=== PATIENT | male | born 1965 | race African-American/Black ===

== ENCOUNTER → 2018-01-31 | Outpatient (CLI) | payer MEDICARE, MEDICAID ==
[2018-02-02 07:45] LABS: PROSTATE SPECIFIC ANTIGEN 0.5 ng/mL (0.0-4.0); PSA FREE 0.15 ng/mL
== END ==
LOC: OD 17:21
PROVIDERS: ATTEND Urology
DX: N40.1 Benign prostatic hyperplasia with lower urinary tract symptoms (principal)
CPT/HCPCS: 36415; 84154

== ENCOUNTER → 2018-03-15 | Outpatient (CLI) | payer MEDICARE, MEDICAID ==
--- NOTE | 2018-03-15 13:54 | RADIOLOGY REPORT (SQ) ---
EXAM DESCRIPTION: FOOT RIGHT 2 VIEWS COMPLETED DATE/TIME: 03/15/2018 1:43 pm REASON FOR STUDY: PAIN IN RIGHT FOOT (M79.671) R22.42 LOCALIZED SWELLING, MASS AND LUMP, LEFT LOWER LIMB M79.671 PAIN IN RIGHT FOOT COMPARISON: None. NUMBER OF VIEWS: Two views. TECHNIQUE: AP and lateral without weight bearing radiographic images acquired of the right foot. LIMITATIONS: None. FINDINGS: MINERALIZATION: Osteopenia. BONES: No acute fracture or dislocation. No worrisome bone lesions. No significant osteophytes. JOINTS: No erosions. No chapis-articular osteopenia. No chondrocalcinosis. SOFT TISSUES: No swelling. No calcifications. OTHER: No other significant finding. IMPRESSION: No acute findings. TECHNICAL DOCUMENTATION: JOB ID: [id number] [employer]- All Rights Reserved Reading location - IP/workstation name: [email or web address]
--- NOTE | 2018-03-15 14:02 | XCELERA REPORT ---
[address] [address] Lower Extremity Venous Evaluation Name: CHANG SAAVEDRA Age: 52 yrs Gender: Male : 1965 Patient Status: Outpatient Patient Location: Study Date: 03/15/2018 01:17 PM Procedure: Color flow and duplex imaging of the veins of the left lower extremity as well as the right Common Femoral vein. Reason For Study: LLE SWELLING Ordering Physician: WU TYSON Performed By: Stacia Willams Right Sided Venous Evaluation The right common femoral vein is fully compressible. Spontaneous and phasic flow is present in the right common femoral vein. Left Sided Venous Evaluation Normal vessel filling wall to wall, compression and augmentation as well as Colour flow down to the infrageniculate veins. Interpretation Summary No duplex evidence of DVT or obstruction in the left lower extremity nor in the right Common Femoral vein. : WU TYSON > Francesco Babin
== END ==
LOC: SP 12:25
PROVIDERS: ATTEND Internal Medicine
DX: R22.42 Localized swelling, mass and lump, left lower limb (principal); M79.671 Pain in right foot
CPT/HCPCS: 93971

== ENCOUNTER 2018-11-15 15:36 | Day surgery (SDC) | payer MEDICARE, MEDICAID ==
[~2018-11-15 15:36] MED LIST: DIPHENHYDRAMINE HCL 50 MG/ML VIAL ONE; EPINEPHRINE INJ 1 MG/10 ML DISP.SYRIN ONE; FENTANYL CITRATE INJ/PF 100 MCG/2 ML AMPUL ONE; FLUMAZENIL INJ 0.5 MG/5 ML VIAL ONE; GLUCAGON,HUMAN RECOMB 1 MG INJ ONE; NALOXONE HCL INJ/PF 0.4 MG/1 ML SDV ONE; ONDANSETRON HCL INJ/PF 4 MG/2 ML SDV ONE
[2018-11-15] MEDS: MIDAZOLAM 2 MG/2 ML INJ ONE ×2 (16:04→16:07)
--- NOTE | 2018-11-15 16:52 | Operative Report ---
Operative Report DATE OF SURGERY: 11/15/18 Operative Report: Pre-op diagnosis: History of colon polyp Post-op diagnosis: 1 Polyps in the transverse and descending colon 2. Internal hemorrhoids Surgery: Colonoscopy with polypectomy Medications: Versed 3mg, Fentanyl 100 Mcg IV push Tissue removed: Colon polyps Procedure: After informed consent obtained from patient, conscious sedation was achieved. A digital rectal examination was performed and this was unremarkable. The colonoscope was inserted into the rectum and advanced to the cecum. The appendiceal orifice and the terminal ileum were both identified. The mucosa was examined into details as the colonoscope was slowly pulled out of the patient. The endoscope was retroflexed in the rectum. Patient tolerated the procedure well. Findings Cecum: Normal Ascending colon: Normal Transverse colon: 8 mm sessile polyp with umbilication removed with a hot snare Descending colon: 3 mm polyp removed with the snare Sigmoid colon: Normal Rectum: Normal except for internal hemorrhoids Plan: Await pathology OPERATION: .
[2018-11-15 17:32] VITALS: BP 120/89
== END 2018-11-15 17:30 | disposition home or self-care (01) ==
LOC: END 15:36
PROVIDERS: ATTEND Internal Medicine Gastroenterology
DX: Z12.11 Encounter for screening for malignant neoplasm of colon (principal); Z86.010 Personal history of colon polyps; K64.8 Other hemorrhoids; D12.4 Benign neoplasm of descending colon; D12.3 Benign neoplasm of transverse colon; I10 Essential (primary) hypertension; K58.9 Irritable bowel syndrome, unspecified; G40.909 Epilepsy, unspecified, not intractable, without status epilepticus
CPT/HCPCS: 45385; 88305 ×2; J2250; J3010; J0171; J1200; J1610; J2310; J2405; J3490

== ENCOUNTER → 2018-11-23 | Outpatient (CLI) | payer MEDICARE, MEDICAID ==
--- NOTE | 2018-11-23 12:56 | RADIOLOGY REPORT (SQ) ---
EXAM DESCRIPTION: U/S RETROPERITON (RENAL/AORTA) COMPLETED DATE/TIME: 11/23/2018 11:01 am REASON FOR STUDY: CKD STAGE 3 N18.3 CHRONIC KIDNEY DISEASE, STAGE 3 (MODERATE) COMPARISON: 01/02/2015 TECHNIQUE: Dynamic and static grayscale images acquired of the kidneys and bladder and recorded on P ACS. Additional selected color Doppler and spectral images recorded. LIMITATIONS: None. FINDINGS: RIGHT KIDNEY: Normal size, 8.7 cm. Normal echogenicity. No solid or suspicious masses. No hydronephrosis. No calcifications. LEFT KIDNEY: Normal size, 10.8 cm. Normal echogenicity. No solid or suspicious masses. There is an 8.8 cm cyst. No hydronephrosis. No calcifications. BLADDER: No bladder masses. OTHER FINDINGS: Prostate gland is enlarged and measures 4.8 x 5.8 x 4.2 cm. The gland is heterogeneo us. IMPRESSION: Large left renal cyst. The kidneys are otherwise unremarkable. Prostate gland is enlar ged and heterogeneous. Is there any clinical evidence of neoplasm? TECHNICAL DOCUMENTATION: JOB ID: [id number] [employer]- All Rights Reserved Reading location - IP/workstation name: [email or web address]
== END ==
LOC: RAD 10:28
PROVIDERS: ATTEND Internal Medicine
DX: N18.3 Chronic kidney disease, stage 3 (moderate) (principal); N28.1 Cyst of kidney, acquired
CPT/HCPCS: 76770

== ENCOUNTER → 2019-07-03 | Outpatient (CLI) | payer MEDICARE, MEDICAID ==
--- NOTE | 2019-07-03 16:50 | RADIOLOGY REPORT (SQ) ---
EXAM DESCRIPTION: U/S RETROPERITON (RENAL/AORTA) COMPLETED DATE/TIME: 07/03/2019 4:36 pm REASON FOR STUDY: N18.3 CHRONIC KIDNEY DISEASE, STAGE 3 (MODERATE) N18.3 CHRONIC KIDNEY DISEASE, ST AGE 3 (MODERATE) COMPARISON: 11/23/2018 TECHNIQUE: Dynamic and static grayscale images acquired of the kidneys and bladder and recorded on P ACS. Additional selected color Doppler and spectral images recorded. LIMITATIONS: None. FINDINGS: RIGHT KIDNEY: Normal size. Normal echogenicity. The solid or suspicious lesions. The re is a small 1.5 cm cyst. No hydronephrosis. No calcifications. LEFT KIDNEY: The left kidney is measured 12.5 cm in length. Normal echogenicity. No solid or lety picious lesions. There is a 9.3 x 8.8 x 7.7 cm cyst. No hydronephrosis. No calcifications. BLADDER: No masses. OTHER FINDINGS: Prostate is enlarged and indents the base of the bladder. IMPRESSION: 1. Large left renal cysts grossly unchanged. 2. Enlarged prostate which indents the base of bladder. TECHNICAL DOCUMENTATION: JOB ID: [id number]- All Rights Reserved Reading location - IP/workstation name: [email or web address]
== END ==
LOC: RAD 15:07
PROVIDERS: ATTEND Internal Medicine Nephrology
DX: I12.9 Hypertensive chronic kidney disease with stage 1 through stage 4 chronic kidney disease, or unspecified chronic kidney disease (principal); N18.3 Chronic kidney disease, stage 3 (moderate)
CPT/HCPCS: 76770

== ENCOUNTER → 2019-08-09 | Outpatient (CLI) | payer MEDICAID, MEDICARE ==
[2019-08-09 10:46] LABS: ABSOLUTE EOSINOPHILS # (AUTO) 0.2 10^3/uL (0.0-0.6); ABSOLUTE LYMPHOCYTES (AUTO) 1.2 10^3/uL (0.5-4.7); ABSOLUTE MONOCYTES (AUTO) 0.4 10^3/uL (0.1-1.4); ABSOLUTE NEUT (AUTO) 1.8 10^3/uL (1.7-8.2); BASOPHILS % (AUTO) 0.9 % (0-2); EOSINOPHILS % (AUTO) 5.2 % (0-6); HEMATOCRIT 43.4 % (37.9-51.0); HEMOGLOBIN 14.2 g/dL (13.5-17.0); LYMPHOCYTES % (AUTO) 33.6 % (13-45); MEAN CORPUSCULAR HGB CONC 32.7 g/dL (32.0-36.0); MEAN CORPUSCULAR VOLUME 89 fl (80-97); MONOCYTES % (AUTO) 10.5 % (3-13); PLATELET COUNT 167 10^3/uL (150-450); RED BLOOD COUNT 4.89 10^6/uL (4.35-5.55); RED CELL DISTRIBUTION WIDTH 15.2 % (11.5-14.0); SEGMENTED NEUTROPHILS % (AUTO) 49.8 % (42-78); TOTAL CELLS COUNTED % (AUTO) 100 %; WHITE BLOOD COUNT 3.6 10^3/uL (4.0-10.5)
[2019-08-09 11:16] LABS: ALBUMIN 4.4 g/dL (3.5-5.0); ALKALINE PHOSPHATASE 88 U/L (38-126); ANION GAP 9 (5-19); ASPARTATE AMINO TRANSFERASE 36 U/L (17-59); BILIRUBIN,DIRECT 0.2 mg/dL (0.0-0.4); BILIRUBIN,TOTAL 0.5 mg/dL (0.2-1.3); BLOOD UREA NITROGEN 21 mg/dL (7-20); CALCIUM 9.8 mg/dL (8.4-10.2); CARBON DIOXIDE 23 mmol/L (22-30); CHLORIDE 108 mmol/L (98-107); GLUCOSE 89 mg/dL (75-110); POTASSIUM 4.5 mmol/L (3.6-5.0); TOTAL PROTEIN 7.9 g/dL (6.3-8.2)
[2019-08-09 11:25] LABS: APPEARANCE,URINE SLIGHTLY-CLOUDY; BILIRUBIN,URINE NEGATIVE (NEGATIVE); COLOR,URINE YELLOW; GLUCOSE, URINE NEGATIVE (NEGATIVE); KETONES,URINE NEGATIVE (NEGATIVE); LEUKOCYTE ESTERASE,URINE LARGE (NEGATIVE); NITRITE,URINE NEGATIVE (NEGATIVE); PROTEIN,URINE NEGATIVE (NEGATIVE); URINE SPECIFIC GRAVITY 1.016; UROBILINOGEN,URINE NEGATIVE mg/dL (<2.0)
== END ==
LOC: OD 10:22
PROVIDERS: ATTEND Internal Medicine Nephrology
DX: I12.9 Hypertensive chronic kidney disease with stage 1 through stage 4 chronic kidney disease, or unspecified chronic kidney disease (principal); N18.3 Chronic kidney disease, stage 3 (moderate); N40.1 Benign prostatic hyperplasia with lower urinary tract symptoms
CPT/HCPCS: 36415; 80053; 81001; 83735; 83970; 84100; 85025

== ENCOUNTER 2020-08-02 18:14 | Inpatient (IN) | payer MEDICARE, MEDICAID ==
[2020-08-02 20:50] LABS: ABSOLUTE BASOPHILS # (AUTO) 0.1 10^3/uL (0.0-0.2); ABSOLUTE EOSINOPHILS # (AUTO) 0.2 10^3/uL (0.0-0.6); ABSOLUTE LYMPHOCYTES (AUTO) 1.9 10^3/uL (0.5-4.7); ABSOLUTE MONOCYTES (AUTO) 0.6 10^3/uL (0.1-1.4); ABSOLUTE NEUT (AUTO) 2.6 10^3/uL (1.7-8.2); EOSINOPHILS % (AUTO) 3.9 % (0-6); HEMATOCRIT 42.3 % (37.9-51.0); HEMOGLOBIN 13.8 g/dL (13.5-17.0); LYMPHOCYTES % (AUTO) 35.2 % (13-45); MEAN CORPUSCULAR HEMOGLOBIN 29.2 pg (27.0-33.4); MEAN CORPUSCULAR HGB CONC 32.7 g/dL (32.0-36.0); MEAN CORPUSCULAR VOLUME 89 fl (80-97); MONOCYTES % (AUTO) 10.4 % (3-13); RED BLOOD COUNT 4.74 10^6/uL (4.35-5.55); RED CELL DISTRIBUTION WIDTH 14.8 % (11.5-14.0); SEGMENTED NEUTROPHILS % (AUTO) 49.5 % (42-78); TOTAL CELLS COUNTED % (AUTO) 100 %; WHITE BLOOD COUNT 5.3 10^3/uL (4.0-10.5)
[2020-08-02 20:57] LABS: PROTHROMBIN TIME 15.4 SEC (11.4-15.4)
[2020-08-02 20:58] LABS: PARTIAL THROMBOPLASTIN TIME 30.3 SEC (23.5-35.8)
[2020-08-02] MEDS ORDERED: MONTELUKAST SODIUM 10 MG TABLET PO SCH (21:00)
[2020-08-02] MEDS ORDERED: LACOSAMIDE 150 MG PO SCH (21:00)
[2020-08-02] MEDS ORDERED: (PENDING PHARMACY ID) (Losartan Potassium [Losartan Potassium] 100 MG) PO SCH (21:00)
[2020-08-02] MEDS ORDERED: (PENDING PHARMACY ID) (Azelastine Hcl [Azelastine Hcl] 2 SPRAY) NASL SCH (21:00)
[2020-08-02] MEDS ORDERED: PRIMIDONE 250 MG TABLET PO SCH (21:00)
[2020-08-02] MEDS ORDERED: ERGOCALCIFEROL (VITAMIN D2) 50000 UNIT (1.25 MG) CAPSULE PO SCH (21:00)
--- NOTE | 2020-08-02 21:02 | PDOC H&P ---
History of Present Illness Admission Date/PCP: 08/02/20 18:14 WU TYSON MD History of Present Illness: CHANG SAAVEDRA is a 54 year old male, Patient is mentally challenged history of seizure, hypertension, BPH, he came to the office today with his sister for evaluation of swelling of the right lower extremity, deep vein thrombosis was suspected, a stat venous Doppler was obtained, demonstrated extensive DVT from the ankle to the popliteal fossa. He also complain of chest pain and shortness of breath suspicious for PE but CT angiogram could not be obtained because of CKD stage III. Past Medical History Cardiac Medical History: Reports: Hypertension Neurological Medical History: Reports: Seizures - SEIZURE PADS APPLIED Hematology: Reports: Sickle Cell Disease Social History Smoking Status: Never Smoker Electronic Cigarette use?: No Frequency of Alcohol Use: None Hx Recreational Drug Use: No Hx Prescription Drug Abuse: No Family History Family History: Reviewed & Not Pertinent Parental Family History Reviewed: Yes Children Family History Reviewed: Yes Sibling(s) Family History Reviewed.: Yes Medication/Allergy Home Medications: Carbamazepine [Tegretol Xr 200 mg Tab.sr] 600 mg PO BID 01/01/15 Montelukast Sodium 10 mg PO QPM 01/01/15 Primidone 100 mg PO BID 01/01/15 Topiramate 100 mg PO BID 01/01/15 Finasteride 5 mg PO QAM 01/29/15 Gabapentin 100 mg PO DAILY 11/15/18 Lacosamide [Vimpat] 150 mg PO BID 11/15/18 Losartan Potassium 100 mg PO DAILY 11/15/18 Tamsulosin HCl [Flomax] 0.4 mg PO BID 11/15/18 Azelastine HCl 2 spray NASL BID 08/02/20 Calcitriol [Rocaltrol 0.25 Mcg Capsule] 1 cap PO DAILY 08/02/20 Ergocalciferol (Vitamin D2) [Drisdol 50,000 Unit (1.25MG) Capsule] 50,000 unit PO Q7D 08/02/20 Loratadine [Claritin] 10 mg PO DAILY 08/02/20 Perampanel [Fycompa] 6 mg PO QHS 08/02/20 Allergies/Adverse Reactions: grass pollen-sweet vernal, standardized [Grass Poll-Sweet Vernal Grass] Allergy (Intermediate, Verified 11/15/18 15:39) eyes runny, sneezing Review of Systems Constitutional: ABSENT: chills, fever(s), headache(s), weight gain, weight loss Eyes: ABSENT: visual disturbances Ears: ABSENT: hearing changes Cardiovascular: PRESENT: chest pain, dyspnea on exertion, edema Respiratory: ABSENT: cough, hemoptysis Gastrointestinal: ABSENT: abdominal pain, constipation, diarrhea, hematemesis, hematochezia, nausea, vomiting Genitourinary: ABSENT: dysuria, hematuria Musculoskeletal: PRESENT: joint swelling Integumentary: ABSENT: rash, wounds Neurological: ABSENT: abnormal gait, abnormal speech, confusion, dizziness, focal weakness, syncope Psychiatric: ABSENT: anxiety, depression, homidical ideation, suicidal ideation Endocrine: ABSENT: cold intolerance, heat intolerance, menstrual abnormalities, polydipsia, polyuria Hematologic/Lymphatic: ABSENT: easy bleeding, easy bruising, lymphadenopathy Physical Exam Vital Signs: Temp Pulse Resp BP Pulse Ox 98.5 F 81 16 135/86 H 100 08/02/20 19:50 08/02/20 19:50 08/02/20 19:50 08/02/20 19:50 08/02/20 19:50 General appearance: PRESENT: no acute distress, well-developed, well-nourished Head exam: PRESENT: atraumatic, normocephalic Eye exam: PRESENT: conjunctiva pink, EOMI, PERRLA. ABSENT: scleral icterus Ear exam: PRESENT: normal external ear exam Mouth exam: PRESENT: moist, tongue midline Neck exam: PRESENT: full ROM. ABSENT: carotid bruit, JVD, lymphadenopathy, thyromegaly Respiratory exam: PRESENT: clear to auscultation [place] Cardiovascular exam: PRESENT: RRR, +S1, +S2. ABSENT: diastolic murmur, rubs, systolic murmur Pulses: PRESENT: normal dorsalis pedis pul, +2 pedal pulses bilateral Vascular exam: PRESENT: normal capillary refill GI/Abdominal exam: PRESENT: normal bowel sounds, soft. ABSENT: distended, guarding, mass, organolmegaly, rebound, tenderness Rectal exam: PRESENT: deferred Extremities exam: PRESENT: pedal edema Neurological exam: PRESENT: alert, awake, oriented to person, oriented to place, oriented to time, oriented to situation, CN II-XII grossly intact Psychiatric exam: PRESENT: appropriate affect, normal mood Skin exam: PRESENT: dry, intact, warm. ABSENT: cyanosis, rash Assessment & Plan - Diagnosis (1) Acute deep vein thrombosis of right popliteal vein Is this a current diagnosis for this admission?: Yes Plan: He has acute deep vein thrombosis of the right popliteal vein, unprovoked proximal thrombosis, I felt the patient needed to be admitted to the hospital for IV heparin because he has underlining chronic kidney disease which makes Lovenox unacceptable and also the new anticoagulant therapy especially the loading dose for acute DVT to be unacceptable as well, patient will be admitted to the hospital, he will be treated with IV heparin for 7 days which will correlate with his 7 days duration for the loading dose of Eliquis. Because the thrombosis is unprovoked treatment will be lifelong. (2) Chest pain Qualifiers: Chest pain type: unspecified Qualified Code(s): R07.9 - Chest pain, unspecified Is this a current diagnosis for this admission?: Yes Plan: This could be a manifestation pulmonary embolism, it is not necessary to confirm PE because it will not exchange mechanic strategy, this patient need a lifelong anticoagulation (3) Chronic kidney disease, stage 3 Is this a current diagnosis for this admission?: Yes Plan: He has a history of CKD stage III - Time Time Spent: Greater than 70 Minutes Anticipated Discharge Disposition: Home, Self Care Anticipated Discharge Timeframe: 7 days - Inpatient Certification Based on my medical assessment, after consideration of the patient's comorbidities, presenting symptoms, or acuity I expect that the services needed warrant INPATIENT care.: Yes I certify that my determination is in accordance with my understanding of Medicare's requirements for reasonable and necessary INPATIENT services [42 CFR 412.3e].: Yes Medical Necessity: Need For Continuous Telemetry Monitoring - Plan Summary Plan Summary: Patient is admitted to the hospital to be treated with intravenous heparin, he has unprovoked proximal deep vein thrombosis of the right lower extremity, he will need lifelong anticoagulant, he probably have a PE because he has severe chest pain shortness of breath but it is not necessary to subject this patient to have CT angiogram of the chest especially with a background of chronic kidney disease stage III, the contrast will worsen the kidney disease especially more so that the management strategy would not be changed.
[2020-08-02 21:04] LABS: ALBUMIN 4.2 g/dL (3.5-5.0); ALKALINE PHOSPHATASE 119 U/L (38-126); AMYLASE 253 U/L (30-110); ANION GAP 8 (5-19); ASPARTATE AMINO TRANSFERASE 30 U/L (17-59); BILIRUBIN,DIRECT 0.3 mg/dL (0.0-0.4); BILIRUBIN,TOTAL 0.3 mg/dL (0.2-1.3); BLOOD UREA NITROGEN 21 mg/dL (7-20); CALCIUM 9.4 mg/dL (8.4-10.2); CARBON DIOXIDE 22 mmol/L (22-30); CHLORIDE 113 mmol/L (98-107); GLUCOSE 86 mg/dL (75-110); POTASSIUM 4.4 mmol/L (3.6-5.0); TOTAL PROTEIN 7.9 g/dL (6.3-8.2)
[2020-08-02 21:16] LABS: CREATINE KINASE MB 0.22 ng/mL (<4.55)
[2020-08-02 21:17] LABS: TROPONIN I < 0.012 ng/mL
[2020-08-02 21:18] LABS: PLATELET COUNT 157 10^3/uL (150-450)
--- NOTE | 2020-08-02 21:23 | RADIOLOGY REPORT (SQ) ---
EXAM DESCRIPTION: XR CHEST 2 VIEWS COMPLETED DATE/TME: 08/02/2020 19:48 CLINICAL HISTORY: 54 years, Male, DVT SUSPECT PE COMPARISON: Chest x-ray 01/25/2015 TECHNIQUE: PA and lateral views. FINDINGS: Cardiomediastinal silhouette is not enlarged. No suspicious acute lung pleural bone abnormalities. IMPRESSION: No obvious acute findings in the chest. Mildly dilated loops of bowel in the upper abdomen.
[2020-08-02 21:35] LABS: FREE T4 (FREE THYROXINE) 0.63 ng/dL (0.78-2.19); THYROID STIMULATING HORMONE 1.19 uIU/mL (0.47-4.68)
[2020-08-02] MEDS: LORATADINE 10 MG TABLET PO SCH (21:54)
[2020-08-02] MEDS: TAMSULOSIN HCL 0.4 MG CAP.SR.24H PO SCH (21:54)
[2020-08-02] MEDS: PRIMIDONE 50 MG TABLET PO SCH (21:54)
[2020-08-02] MEDS: LACOSAMIDE 100 MG TABLET PO SCH (21:54)
[2020-08-02] MEDS: CALCITRIOL 0.25 MCG CAPSULE PO SCH (21:54)
[2020-08-02] MEDS: GABAPENTIN 100 MG CAPSULE PO SCH (21:54)
[2020-08-02] MEDS: CARBAMAZEPINE 200 MG TAB.SR.12H PO SCH (21:54)
[2020-08-02] MEDS ORDERED: PERAMPANEL 6 MG PO SCH (22:00)
[2020-08-02] MEDS: TOPIRAMATE 100 MG TABLET PO SCH (22:03)
[2020-08-03] MEDS: HEPARIN SOD (PORCINE) 1,000 UNIT/ML 10 ML VIAL IV PRN (01:40)
[2020-08-03] MEDS: HEPARIN SODIUM,PORCINE/D5W 25,000 UNIT/250 ML RTUINJ IV PRN (01:43)
[2020-08-03 03:02] LABS: CREATINE KINASE MB < 0.22 ng/mL (<4.55); TROPONIN I < 0.012 ng/mL
[2020-08-03 09:17] LABS: CHOLESTEROL 207.05 mg/dL (0-200); PHOSPHORUS 2.7 mg/dL (2.5-4.5); TRIGLYCERIDES 39 mg/dL (<150)
[2020-08-03 09:29] LABS: DIRECT LDL 86 mg/dL (<100)
[2020-08-03 09:31] LABS: CREATINE KINASE MB 0.28 ng/mL (<4.55)
[2020-08-03 09:32] LABS: TROPONIN I < 0.012 ng/mL
[2020-08-03] MEDS ORDERED: LOSARTAN POTASSIUM 50 MG TABLET PO SCH (10:00)
[2020-08-03] MEDS: CARBAMAZEPINE 200 MG TAB.SR.12H PO SCH (10:56)
[2020-08-03] MEDS: FINASTERIDE 5 MG TABLET PO SCH (10:57)
[2020-08-03] MEDS: LORATADINE 10 MG TABLET PO SCH (10:57)
[2020-08-03] MEDS: LACOSAMIDE 100 MG TABLET PO SCH (10:57)
[2020-08-03] MEDS: TAMSULOSIN HCL 0.4 MG CAP.SR.24H PO SCH (10:57)
[2020-08-03] MEDS: CALCITRIOL 0.25 MCG CAPSULE PO SCH (10:57)
[2020-08-03] MEDS: TOPIRAMATE 100 MG TABLET PO SCH (10:58)
[2020-08-03] MEDS: PRIMIDONE 50 MG TABLET PO SCH (10:58)
[2020-08-03] MEDS: GABAPENTIN 100 MG CAPSULE PO SCH (10:58)
--- NOTE | 2020-08-03 14:10 | PDOC PROGRESS REPORT ---
Subjective Progress Note for:: 08/03/20 Subjective:: Patient seen by the bedside, he complains of pain in the right leg, the right leg is not as firm as it was yesterday Reason For Visit: EXTENSIVE DVT OF THE RIGHT LEG, CHEST PAIN ? PE Physical Exam Vital Signs: Temp Pulse Resp BP Pulse Ox 97.8 F 83 16 133/86 H 97 08/03/20 11:15 08/03/20 11:15 08/03/20 11:15 08/03/20 11:15 08/03/20 11:15 Intake & Output 08/02/20 08/03/20 08/04/20 06:59 06:59 06:59 Intake Total 400 614 Balance 400 614 Weight 87.3 kg General appearance: PRESENT: no acute distress Eye exam: PRESENT: PERRLA Respiratory exam: PRESENT: clear to auscultation [place] Cardiovascular exam: PRESENT: +S1, +S2 GI/Abdominal exam: PRESENT: soft Neurological exam: PRESENT: alert, CN II-XII grossly intact Results Laboratory Results: 08/02/20 20:30 08/02/20 20:30 08/02/20 08/02/20 08/02/20 20:30 20:30 20:30 WBC RBC Hgb Hct MCV MCH MCHC RDW Plt Count Seg Neutrophils % Sodium 143.1 Potassium 4.4 Chloride 113 H Carbon Dioxide 22 Anion Gap 8 BUN 21 H Creatinine 1.46 H Est GFR ( Amer) > 60 Glucose 86 Calcium 9.4 Phosphorus Magnesium 2.4 H Total Bilirubin 0.3 AST 30 Alkaline Phosphatase 119 Ammonia 23.8 Total Protein 7.9 Albumin 4.2 Triglycerides Cholesterol LDL Cholesterol Direct VLDL Cholesterol HDL Cholesterol Amylase 253 H Lipase 400.5 H TSH 1.19 Free T4 0.63 L 08/02/20 08/03/20 20:30 08:22 WBC 5.3 RBC 4.74 Hgb 13.8 Hct 42.3 MCV 89 MCH 29.2 MCHC 32.7 RDW 14.8 H Plt Count 157 Seg Neutrophils % 49.5 Sodium Potassium Chloride Carbon Dioxide Anion Gap BUN Creatinine Est GFR ( Amer) Glucose Calcium Phosphorus 2.7 Magnesium Total Bilirubin AST Alkaline Phosphatase Ammonia Total Protein Albumin Triglycerides 39 Cholesterol 207.05 H LDL Cholesterol Direct 86 VLDL Cholesterol 8.0 L HDL Cholesterol 84 Amylase Lipase TSH Free T4 08/02/20 08/02/20 08/02/20 20:30 20:30 20:30 Creatine Kinase 74 CK-MB (CK-2) 0.22 Troponin I < 0.012 NT-Pro-B Natriuret Pep 84 08/03/20 08/03/20 08/03/20 02:00 02:00 08:22 Creatine Kinase 70 69 CK-MB (CK-2) < 0.22 Troponin I < 0.012 NT-Pro-B Natriuret Pep 08/03/20 08:22 Creatine Kinase CK-MB (CK-2) 0.28 Troponin I < 0.012 NT-Pro-B Natriuret Pep Impressions: Chest X-Ray 08/02/20 19:48 IMPRESSION: No obvious acute findings in the chest. Mildly dilated loops of bowel in the upper abdomen. Assessment & Plan - Diagnosis (1) Acute deep vein thrombosis of right popliteal vein Is this a current diagnosis for this admission?: Yes Plan: Continue IV heparin (2) Chest pain Qualifiers: Chest pain type: unspecified Qualified Code(s): R07.9 - Chest pain, unspecified Is this a current diagnosis for this admission?: Yes (3) Chronic kidney disease, stage 3 Is this a current diagnosis for this admission?: Yes - Time Time Spent with patient: 35 or more minutes Level of Care: IMCU Medications reviewed and adjusted accordingly: Yes - Inpatient Certification Based on my medical assessment, after consideration of the patient's comor bidities, presenting symptoms, or acuity I expect that the services needed warrant INPATIENT care.: Yes I certify that my determination is in accordance with my understanding of Medicare's requirements for reasonable and necessary INPATIENT services [42 CFR 412.3e].: Yes
[2020-08-03 19:01] LABS: APPEARANCE,URINE CLEAR; BILIRUBIN,URINE NEGATIVE (NEGATIVE); COLOR,URINE YELLOW; GLUCOSE, URINE NEGATIVE (NEGATIVE); KETONES,URINE NEGATIVE (NEGATIVE); LEUKOCYTE ESTERASE,URINE NEGATIVE (NEGATIVE); NITRITE,URINE NEGATIVE (NEGATIVE); PROTEIN,URINE NEGATIVE (NEGATIVE); URINE SPECIFIC GRAVITY 1.016; UROBILINOGEN,URINE NEGATIVE mg/dL (<2.0)
[2020-08-03 19:23] LABS: URINE AMPHETAMINES SCREEN NEGATIVE; URINE BENZODIAZEPINES SCREEN NEGATIVE; URINE COCAINE SCREEN NEGATIVE; URINE MARIJUANA (THC) SCREEN NEGATIVE; URINE METHADONE SCREEN NEGATIVE; URINE PHENCYCLIDINE SCREEN NEGATIVE
[2020-08-03 19:25] LABS: URINE BARBITURATES SCREEN UNCONFIRMED POSITIVE
[2020-08-03] MEDS: MONTELUKAST SODIUM 10 MG TABLET PO SCH (21:18)
[2020-08-03] MEDS ORDERED: TAMSULOSIN HCL 0.4 MG CAP.SR.24H PO SCH (22:00)
[2020-08-03] MEDS ORDERED: TOPIRAMATE 100 MG TABLET PO SCH (22:00)
[2020-08-03] MEDS ORDERED: PRIMIDONE 50 MG TABLET PO SCH (22:00)
[2020-08-03] MEDS ORDERED: LACOSAMIDE 100 MG TABLET PO SCH (22:00)
[2020-08-03] MEDS ORDERED: CARBAMAZEPINE 200 MG TAB.SR.12H PO SCH (22:00)
[2020-08-04] MEDS: HEPARIN SODIUM,PORCINE/D5W 25,000 UNIT/250 ML RTUINJ IV PRN (07:33)
[2020-08-04] MEDS: GABAPENTIN 100 MG CAPSULE PO SCH (08:32)
[2020-08-04] MEDS: LACOSAMIDE 100 MG TABLET PO SCH ×2 (08:32→20:22)
[2020-08-04] MEDS: CARBAMAZEPINE 200 MG TAB.SR.12H PO SCH ×2 (08:32→20:22)
[2020-08-04] MEDS: CALCITRIOL 0.25 MCG CAPSULE PO SCH (08:33)
[2020-08-04] MEDS: PRIMIDONE 50 MG TABLET PO SCH ×2 (08:33→20:21)
[2020-08-04] MEDS: TAMSULOSIN HCL 0.4 MG CAP.SR.24H PO SCH ×2 (08:34→20:22)
[2020-08-04] MEDS: LORATADINE 10 MG TABLET PO SCH (08:34)
[2020-08-04] MEDS: FINASTERIDE 5 MG TABLET PO SCH (08:34)
[2020-08-04] MEDS: LOSARTAN POTASSIUM 50 MG TABLET PO SCH (08:34)
[2020-08-04] MEDS: TOPIRAMATE 100 MG TABLET PO SCH ×2 (08:35→20:22)
[2020-08-04] MEDS: HEPARIN SOD (PORCINE) 1,000 UNIT/ML 10 ML VIAL IV PRN (11:00)
[2020-08-04] MEDS ORDERED: AZELASTINE HCL NASL ONE (12:15)
--- NOTE | 2020-08-04 15:23 | PDOC PROGRESS REPORT ---
Subjective Progress Note for:: 08/04/20 Subjective:: Patient was admitted for the management of extensive DVT of the right leg Reason For Visit: EXTENSIVE DVT OF THE RIGHT LEG, CHEST PAIN ? PE Physical Exam Vital Signs: Temp Pulse Resp BP Pulse Ox 98.5 F 87 16 123/81 97 08/04/20 10:51 08/04/20 10:51 08/04/20 10:51 08/04/20 10:51 08/04/20 10:51 Intake & Output 08/03/20 08/04/20 08/05/20 06:59 06:59 06:59 Intake Total 400 1224 324 Balance 400 1224 324 Weight 87.3 kg 88.9 kg General appearance: PRESENT: no acute distress, well-developed, well-nourished Head exam: PRESENT: atraumatic, normocephalic Eye exam: PRESENT: conjunctiva pink, EOMI, PERRLA Ear exam: PRESENT: normal external ear exam Mouth exam: PRESENT: moist, tongue midline Neck exam: PRESENT: full ROM Respiratory exam: PRESENT: clear to auscultation [place] Cardiovascular exam: PRESENT: RRR, +S1, +S2 Pulses: PRESENT: normal dorsalis pedis pul, +2 pedal pulses bilateral Vascular exam: PRESENT: normal capillary refill GI/Abdominal exam: PRESENT: normal bowel sounds, soft Rectal exam: PRESENT: deferred Neurological exam: PRESENT: alert, awake, oriented to person, oriented to place, oriented to time, oriented to situation, CN II-XII grossly intact Psychiatric exam: PRESENT: appropriate affect, normal mood Skin exam: PRESENT: dry, intact, warm. ABSENT: cyanosis, rash Results Laboratory Results: 08/02/20 20:30 08/02/20 20:30 08/03/20 13:00 Urine Color YELLOW Urine Appearance CLEAR Urine pH 6.0 Ur Specific [place] 1.016 Urine Protein NEGATIVE Urine Glucose (UA) NEGATIVE Urine Ketones NEGATIVE Urine Blood NEGATIVE Urine Nitrite NEGATIVE Ur Leukocyte Esterase NEGATIVE Urine WBC (Auto) 3 Urine RBC (Auto) 0 08/02/20 08/02/20 08/02/20 20:30 20:30 20:30 Creatine Kinase 74 CK-MB (CK-2) 0.22 Troponin I < 0.012 NT-Pro-B Natriuret Pep 84 08/03/20 08/03/20 08/03/20 02:00 02:00 08:22 Creatine Kinase 70 69 CK-MB (CK-2) < 0.22 Troponin I < 0.012 NT-Pro-B Natriuret Pep 08/03/20 08:22 Creatine Kinase CK-MB (CK-2) 0.28 Troponin I < 0.012 NT-Pro-B Natriuret Pep Impressions: Chest X-Ray 08/02/20 19:48 IMPRESSION: No obvious acute findings in the chest. Mildly dilated loops of bowel in the upper abdomen. Assessment & Plan - Diagnosis (1) Acute deep vein thrombosis of right popliteal vein Is this a current diagnosis for this admission?: Yes Plan: Continue IV heparin (2) Chest pain Qualifiers: Chest pain type: unspecified Qualified Code(s): R07.9 - Chest pain, unspecified Is this a current diagnosis for this admission?: Yes (3) Chronic kidney disease, stage 3 Is this a current diagnosis for this admission?: Yes - Time Time Spent with patient: 35 or more minutes Level of Care: IMCU Medications reviewed and adjusted accordingly: Yes Anticipated discharge: Home Anticipated DC Timeframe: within 72 hours - Inpatient Certification Based on my medical assessment, after consideration of the patient's comorbidities, presenting symptoms, or acuity I expect that the services needed warrant INPATIENT care.: Yes I certify that my determination is in accordance with my understanding of Medicare's requirements for reasonable and necessary INPATIENT services [42 CFR 412.3e].: Yes
[2020-08-04 15:25] LABS: ABSOLUTE BASOPHILS # (AUTO) 0.1 10^3/uL (0.0-0.2); ABSOLUTE EOSINOPHILS # (AUTO) 0.3 10^3/uL (0.0-0.6); ABSOLUTE LYMPHOCYTES (AUTO) 1.6 10^3/uL (0.5-4.7); ABSOLUTE MONOCYTES (AUTO) 0.5 10^3/uL (0.1-1.4); ABSOLUTE NEUT (AUTO) 2.9 10^3/uL (1.7-8.2); BASOPHILS % (AUTO) 1.9 % (0-2); EOSINOPHILS % (AUTO) 5.6 % (0-6); HEMATOCRIT 43.5 % (37.9-51.0); HEMOGLOBIN 14.4 g/dL (13.5-17.0); LYMPHOCYTES % (AUTO) 29.5 % (13-45); MEAN CORPUSCULAR HEMOGLOBIN 29.4 pg (27.0-33.4); MEAN CORPUSCULAR HGB CONC 33.2 g/dL (32.0-36.0); MEAN CORPUSCULAR VOLUME 89 fl (80-97); MONOCYTES % (AUTO) 9.5 % (3-13); PLATELET COUNT 162 10^3/uL (150-450); RED CELL DISTRIBUTION WIDTH 14.4 % (11.5-14.0); SEGMENTED NEUTROPHILS % (AUTO) 53.5 % (42-78); TOTAL CELLS COUNTED % (AUTO) 100 %; WHITE BLOOD COUNT 5.4 10^3/uL (4.0-10.5)
[2020-08-04 15:35] LABS: ALBUMIN 3.5 g/dL (3.5-5.0); ALKALINE PHOSPHATASE 106 U/L (38-126); ANION GAP 6 (5-19); ASPARTATE AMINO TRANSFERASE 28 U/L (17-59); BILIRUBIN,DIRECT 0.2 mg/dL (0.0-0.4); BILIRUBIN,TOTAL 0.5 mg/dL (0.2-1.3); BLOOD UREA NITROGEN 21 mg/dL (7-20); CALCIUM 9.1 mg/dL (8.4-10.2); CARBON DIOXIDE 21 mmol/L (22-30); CHLORIDE 111 mmol/L (98-107); GLUCOSE 93 mg/dL (75-110); POTASSIUM 4.3 mmol/L (3.6-5.0); TOTAL PROTEIN 6.7 g/dL (6.3-8.2)
[2020-08-04] MEDS: AZELASTINE HCL NASL SCH (20:23)
[2020-08-04] MEDS: PERAMPANEL 6 MG PO SCH (20:24)
[2020-08-04] MEDS ORDERED: AZELASTINE HCL NASL SCH (22:00)
[2020-08-04] MEDS ORDERED: PERAMPANEL 6 MG PO SCH (22:00)
[2020-08-05] MEDS: MONTELUKAST SODIUM 10 MG TABLET PO SCH ×2 (05:41→21:01)
[2020-08-05 07:13] LABS: ABSOLUTE EOSINOPHILS # (AUTO) 0.3 10^3/uL (0.0-0.6); ABSOLUTE LYMPHOCYTES (AUTO) 1.6 10^3/uL (0.5-4.7); ABSOLUTE MONOCYTES (AUTO) 0.4 10^3/uL (0.1-1.4); ABSOLUTE NEUT (AUTO) 1.5 10^3/uL (1.7-8.2); BASOPHILS % (AUTO) 0.5 % (0-2); HEMATOCRIT 39.4 % (37.9-51.0); HEMOGLOBIN 13.2 g/dL (13.5-17.0); LYMPHOCYTES % (AUTO) 42.3 % (13-45); MEAN CORPUSCULAR HEMOGLOBIN 29.4 pg (27.0-33.4); MEAN CORPUSCULAR HGB CONC 33.4 g/dL (32.0-36.0); MEAN CORPUSCULAR VOLUME 88 fl (80-97); MONOCYTES % (AUTO) 10.7 % (3-13); PLATELET COUNT 162 10^3/uL (150-450); RED BLOOD COUNT 4.47 10^6/uL (4.35-5.55); RED CELL DISTRIBUTION WIDTH 14.3 % (11.5-14.0); SEGMENTED NEUTROPHILS % (AUTO) 38.5 % (42-78); TOTAL CELLS COUNTED % (AUTO) 100 %; WHITE BLOOD COUNT 3.9 10^3/uL (4.0-10.5)
[2020-08-05 07:34] LABS: ALBUMIN 3.6 g/dL (3.5-5.0); ALKALINE PHOSPHATASE 111 U/L (38-126); ANION GAP 9 (5-19); ASPARTATE AMINO TRANSFERASE 28 U/L (17-59); BILIRUBIN,DIRECT 0.2 mg/dL (0.0-0.4); BILIRUBIN,TOTAL 0.4 mg/dL (0.2-1.3); BLOOD UREA NITROGEN 18 mg/dL (7-20); CALCIUM 9.3 mg/dL (8.4-10.2); CARBON DIOXIDE 19 mmol/L (22-30); CHLORIDE 112 mmol/L (98-107); GLUCOSE 84 mg/dL (75-110); POTASSIUM 4.1 mmol/L (3.6-5.0); TOTAL PROTEIN 6.8 g/dL (6.3-8.2)
[2020-08-05] MEDS: CARBAMAZEPINE 200 MG TAB.SR.12H PO SCH ×2 (08:37→21:00)
[2020-08-05] MEDS: GABAPENTIN 100 MG CAPSULE PO SCH (08:38)
[2020-08-05] MEDS: PRIMIDONE 50 MG TABLET PO SCH ×2 (08:38→21:01)
[2020-08-05] MEDS: LACOSAMIDE 100 MG TABLET PO SCH ×2 (08:39→20:59)
[2020-08-05] MEDS: CALCITRIOL 0.25 MCG CAPSULE PO SCH (08:39)
[2020-08-05] MEDS: TOPIRAMATE 100 MG TABLET PO SCH ×2 (08:40→21:02)
[2020-08-05] MEDS: FINASTERIDE 5 MG TABLET PO SCH (08:42)
[2020-08-05] MEDS: AZELASTINE HCL NASL SCH ×2 (08:42→21:03)
[2020-08-05] MEDS: LOSARTAN POTASSIUM 50 MG TABLET PO SCH (08:43)
[2020-08-05] MEDS: TAMSULOSIN HCL 0.4 MG CAP.SR.24H PO SCH ×2 (08:43→21:01)
[2020-08-05] MEDS: LORATADINE 10 MG TABLET PO SCH (08:43)
[2020-08-05] MEDS: HEPARIN SODIUM,PORCINE/D5W 25,000 UNIT/250 ML RTUINJ IV PRN (11:11)
[2020-08-05] MEDS: PERAMPANEL 6 MG PO SCH (21:03)
--- NOTE | 2020-08-05 22:01 | PDOC PROGRESS REPORT ---
Subjective Progress Note for:: 08/05/20 Subjective:: Patient seen by the bedside admitted for DVT on IV heparin, he will continue IV heparin for a total of 7 days, this will coincide with the duration for the loading dose of Eliquis which is 10 mg p.o. twice daily for 7 days, because he has renal insufficiency the loading dose dosage may be too excessive with increased risk of bleed. 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 PE Physical Exam Vital Signs: Temp Pulse Resp BP Pulse Ox 98.2 F 79 18 118/83 100 08/05/20 19:53 08/05/20 19:53 08/05/20 19:53 08/05/20 19:53 08/05/20 19:53 Intake & Output 08/04/20 08/05/20 08/06/20 06:59 06:59 06:59 Intake Total 1224 884 582 Balance 1224 884 582 Weight 88.9 kg 90.2 kg General appearance: PRESENT: no acute distress, well-developed, well-nourished Head exam: PRESENT: atraumatic, normocephalic Eye exam: PRESENT: conjunctiva pink, EOMI, PERRLA Ear exam: PRESENT: normal external ear exam Mouth exam: PRESENT: moist, tongue midline Neck exam: PRESENT: full ROM Respiratory exam: PRESENT: clear to auscultation [place] Cardiovascular exam: PRESENT: RRR, +S1, +S2 Pulses: PRESENT: normal dorsalis pedis pul, +2 pedal pulses bilateral Vascular exam: PRESENT: normal capillary refill GI/Abdominal exam: PRESENT: normal bowel sounds, soft Rectal exam: PRESENT: deferred Neurological exam: PRESENT: alert, awake, oriented to person, oriented to place, oriented to time, oriented to situation, CN II-XII grossly intact Psychiatric exam: PRESENT: appropriate affect, normal mood Skin exam: PRESENT: dry, intact, warm Results Laboratory Results: 08/05/20 06:38 08/05/20 06:38 08/05/20 08/05/20 06:38 06:38 WBC 3.9 L RBC 4.47 Hgb 13.2 L Hct 39.4 MCV 88 MCH 29.4 MCHC 33.4 RDW 14.3 H Plt Count 162 Seg Neutrophils % 38.5 L Sodium 139.6 Potassium 4.1 Chloride 112 H Carbon Dioxide 19 L Anion Gap 9 BUN 18 Creatinine 1.37 H Est GFR ( Amer) > 60 Glucose 84 Calcium 9.3 Total Bilirubin 0.4 AST 28 Alkaline Phosphatase 111 Total Protein 6.8 Albumin 3.6 08/03/20 13:00 Clean Catch Midstream Urine Culture - Final Mixed Urogenital Mervat Viridans Streptococcus 08/02/20 08/02/20 08/02/20 20:30 20:30 20:30 Creatine Kinase 74 CK-MB (CK-2) 0.22 Troponin I < 0.012 NT-Pro-B Natriuret Pep 84 08/03/20 08/03/20 08/03/20 02:00 02:00 08:22 Creatine Kinase 70 69 CK-MB (CK-2) < 0.22 Troponin I < 0.012 NT-Pro-B Natriuret Pep 08/03/20 08:22 Creatine Kinase CK-MB (CK-2) 0.28 Troponin I < 0.012 NT-Pro-B Natriuret Pep Impressions: Chest X-Ray 08/02/20 19:48 IMPRESSION: No obvious acute findings in the chest. Mildly dilated loops of bowel in the upper abdomen. 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 (2) Chest pain Qualifiers: Chest pain type: unspecified Qualified Code(s): R07.9 - Chest pain, unspecified Is this a current diagnosis for this admission?: Yes (3) Chronic kidney disease, stage 3 Is this a current diagnosis for this admission?: Yes - Time Time Spent with patient: 25-34 minutes Level of Care: IMCU Anticipated discharge: Home Anticipated DC Timeframe: within 72 hours - Inpatient Certification Based on my medical assessment, after consideration of the patient's comorbidities, presenting symptoms, or acuity I expect that the services needed warrant INPATIENT care.: Yes I certify that my determination is in accordance with my understanding of Medicare's requirements for reasonable and necessary INPATIENT services [42 CFR 412.3e].: Yes
[2020-08-06] MEDS: LACOSAMIDE 100 MG TABLET PO SCH ×2 (08:00→19:33)
[2020-08-06] MEDS: CARBAMAZEPINE 200 MG TAB.SR.12H PO SCH ×2 (08:01→19:32)
[2020-08-06] MEDS: CALCITRIOL 0.25 MCG CAPSULE PO SCH (08:02)
[2020-08-06] MEDS: PRIMIDONE 50 MG TABLET PO SCH ×2 (08:03→19:33)
[2020-08-06] MEDS: TOPIRAMATE 100 MG TABLET PO SCH ×2 (08:03→19:32)
[2020-08-06] MEDS: GABAPENTIN 100 MG CAPSULE PO SCH (08:03)
[2020-08-06] MEDS: FINASTERIDE 5 MG TABLET PO SCH (08:04)
[2020-08-06] MEDS: TAMSULOSIN HCL 0.4 MG CAP.SR.24H PO SCH ×2 (08:05→19:32)
[2020-08-06] MEDS: LOSARTAN POTASSIUM 50 MG TABLET PO SCH (08:06)
[2020-08-06] MEDS: LORATADINE 10 MG TABLET PO SCH (08:06)
[2020-08-06] MEDS: AZELASTINE HCL NASL SCH ×2 (08:09→19:37)
[2020-08-06] MEDS: HEPARIN SODIUM,PORCINE/D5W 25,000 UNIT/250 ML RTUINJ IV PRN (16:57)
[2020-08-06] MEDS: PERAMPANEL 6 MG PO SCH (19:37)
--- NOTE | 2020-08-06 19:52 | PDOC PROGRESS REPORT ---
Subjective Progress Note for:: 08/06/20 Subjective:: Patient seen by the bedside admitted for DVT on IV heparin, he will continue IV heparin for a total of 7 days, this will coincide with the duration for the loading dose of Eliquis which is 10 mg p.o. twice daily for 7 days, because he has renal insufficiency the loading dose dosage may be too excessive with increased risk of bleed. Reason For Visit: EXTENSIVE DVT OF THE RIGHT LEG, CHEST PAIN ? PE Physical Exam Vital Signs: Temp Pulse Resp BP Pulse Ox 98.2 F 80 18 130/80 H 100 08/06/20 16:09 08/06/20 16:09 08/06/20 16:09 08/06/20 16:09 08/06/20 16:09 Intake & Output 08/05/20 08/06/20 08/07/20 06:59 06:59 06:59 Intake Total 884 1282 1150 Balance 884 1282 1150 Weight 90.2 kg 89.8 kg General appearance: PRESENT: no acute distress Eye exam: PRESENT: PERRLA Respiratory exam: PRESENT: clear to auscultation [place] Cardiovascular exam: PRESENT: +S1, +S2 GI/Abdominal exam: PRESENT: soft Neurological exam: PRESENT: alert Results Laboratory Results: 08/05/20 06:38 08/05/20 06:38 08/02/20 08/02/20 08/02/20 20:30 20:30 20:30 Creatine Kinase 74 CK-MB (CK-2) 0.22 Troponin I < 0.012 NT-Pro-B Natriuret Pep 84 08/03/20 08/03/20 08/03/20 02:00 02:00 08:22 Creatine Kinase 70 69 CK-MB (CK-2) < 0.22 Troponin I < 0.012 NT-Pro-B Natriuret Pep 08/03/20 08:22 Creatine Kinase CK-MB (CK-2) 0.28 Troponin I < 0.012 NT-Pro-B Natriuret Pep Impressions: Chest X-Ray 08/02/20 19:48 IMPRESSION: No obvious acute findings in the chest. Mildly dilated loops of bowel in the upper abdomen. 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
[2020-08-06] MEDS: MONTELUKAST SODIUM 10 MG TABLET PO SCH (21:00)
[2020-08-07 06:19] LABS: APPEARANCE,URINE SLIGHTLY-CLOUDY; BILIRUBIN,URINE NEGATIVE (NEGATIVE); COLOR,URINE YELLOW; GLUCOSE, URINE NEGATIVE (NEGATIVE); KETONES,URINE NEGATIVE (NEGATIVE); LEUKOCYTE ESTERASE,URINE SMALL (NEGATIVE); NITRITE,URINE NEGATIVE (NEGATIVE); PROTEIN,URINE NEGATIVE (NEGATIVE); URINE SPECIFIC GRAVITY 1.013; UROBILINOGEN,URINE NEGATIVE mg/dL (<2.0)
[2020-08-07] MEDS: LACOSAMIDE 100 MG TABLET PO SCH ×2 (08:02→19:52)
[2020-08-07] MEDS: GABAPENTIN 100 MG CAPSULE PO SCH ×2 (08:02→20:52)
[2020-08-07] MEDS: LOSARTAN POTASSIUM 50 MG TABLET PO SCH (08:03)
[2020-08-07] MEDS: CARBAMAZEPINE 200 MG TAB.SR.12H PO SCH ×2 (08:03→19:50)
[2020-08-07] MEDS: CALCITRIOL 0.25 MCG CAPSULE PO SCH (08:04)
[2020-08-07] MEDS: PRIMIDONE 50 MG TABLET PO SCH ×2 (08:05→19:51)
[2020-08-07] MEDS: LORATADINE 10 MG TABLET PO SCH (08:05)
[2020-08-07] MEDS: FINASTERIDE 5 MG TABLET PO SCH (08:05)
[2020-08-07] MEDS: TAMSULOSIN HCL 0.4 MG CAP.SR.24H PO SCH ×2 (08:05→19:51)
[2020-08-07] MEDS: TOPIRAMATE 100 MG TABLET PO SCH ×2 (08:06→19:59)
[2020-08-07] MEDS: AZELASTINE HCL NASL SCH ×2 (08:07→19:59)
--- NOTE | 2020-08-07 16:19 | PDOC PROGRESS REPORT ---
Subjective Progress Note for:: 08/07/20 Subjective:: Patient seen by the bedside admitted for DVT on IV heparin, he will continue IV heparin for a total of 7 days, this will coincide with the duration for the loading dose of Eliquis which is 10 mg p.o. twice daily for 7 days, because he has renal insufficiency the loading dose dosage may be too excessive with increased risk of bleed. Reason For Visit: EXTENSIVE DVT OF THE RIGHT LEG, CHEST PAIN ? PE Physical Exam Vital Signs: Temp Pulse Resp BP Pulse Ox 97.5 F 89 17 133/89 H 100 08/07/20 16:00 08/07/20 16:00 08/07/20 16:00 08/07/20 16:00 08/07/20 16:00 Intake & Output 08/06/20 08/07/20 08/08/20 06:59 06:59 06:59 Intake Total 1282 1450 460 Balance 1282 1450 460 Weight 89.8 kg 84.8 kg General appearance: PRESENT: no acute distress Eye exam: PRESENT: PERRLA Respiratory exam: PRESENT: clear to auscultation [place] Cardiovascular exam: PRESENT: +S1, +S2 GI/Abdominal exam: PRESENT: soft Neurological exam: PRESENT: alert, CN II-XII grossly intact Results Laboratory Results: 08/05/20 06:38 08/05/20 06:38 08/07/20 05:45 Urine Color YELLOW Urine Appearance SLIGHTLY-CLOUDY Urine pH 6.0 Ur Specific [place] 1.013 Urine Protein NEGATIVE Urine Glucose (UA) NEGATIVE Urine Ketones NEGATIVE Urine Blood NEGATIVE Urine Nitrite NEGATIVE Ur Leukocyte Esterase SMALL H Urine WBC (Auto) 15 Urine RBC (Auto) 0 08/02/20 08/02/20 08/02/20 20:30 20:30 20:30 Creatine Kinase 74 CK-MB (CK-2) 0.22 Troponin I < 0.012 NT-Pro-B Natriuret Pep 84 08/03/20 08/03/20 08/03/20 02:00 02:00 08:22 Creatine Kinase 70 69 CK-MB (CK-2) < 0.22 Troponin I < 0.012 NT-Pro-B Natriuret Pep 08/03/20 08:22 Creatine Kinase CK-MB (CK-2) 0.28 Troponin I < 0.012 NT-Pro-B Natriuret Pep Impressions: Chest X-Ray 08/02/20 19:48 IMPRESSION: No obvious acute findings in the chest. Mildly dilated loops of bowel in the upper abdomen. 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 (2) Chest pain Qualifiers: Chest pain type: unspecified Qualified Code(s): R07.9 - Chest pain, unspecified Is this a current diagnosis for this admission?: Yes (3) Chronic kidney disease, stage 3 Is this a current diagnosis for this admission?: Yes - Time Time Spent with patient: 25-34 minutes Level of Care: IMCU Medications reviewed and adjusted accordingly: Yes Anticipated discharge: Home Anticipated DC Timeframe: within 48 hours, within 72 hours - Inpatient Certification Based on my medical assessment, after consideration of the patient's comorbidities, presenting symptoms, or acuity I expect that the services needed warrant INPATIENT care.: Yes I certify that my determination is in accordance with my understanding of Medicare's requirements for reasonable and necessary INPATIENT services [42 CFR 412.3e].: Yes
[2020-08-07] MEDS: MONTELUKAST SODIUM 10 MG TABLET PO SCH (19:52)
[2020-08-07] MEDS: PERAMPANEL 6 MG PO SCH (19:59)
[2020-08-07] MEDS: HEPARIN SODIUM,PORCINE/D5W 25,000 UNIT/250 ML RTUINJ IV PRN (20:04)
[2020-08-07] MEDS ORDERED: ERGOCALCIFEROL (VITAMIN D2) 50000 UNIT (1.25 MG) CAPSULE PO SCH ×2 (21:00→22:00)
[2020-08-08] MEDS: AZELASTINE HCL NASL SCH ×2 (08:00→21:24)
[2020-08-08] MEDS: CARBAMAZEPINE 200 MG TAB.SR.12H PO SCH ×2 (08:08→21:17)
[2020-08-08] MEDS: CALCITRIOL 0.25 MCG CAPSULE PO SCH (08:08)
[2020-08-08] MEDS: PRIMIDONE 50 MG TABLET PO SCH ×2 (08:09→21:24)
[2020-08-08] MEDS: LACOSAMIDE 100 MG TABLET PO SCH ×2 (08:09→21:18)
[2020-08-08] MEDS: LOSARTAN POTASSIUM 50 MG TABLET PO SCH (08:09)
[2020-08-08] MEDS: GABAPENTIN 100 MG CAPSULE PO SCH ×2 (08:09→21:18)
[2020-08-08] MEDS: FINASTERIDE 5 MG TABLET PO SCH (08:10)
[2020-08-08] MEDS: TAMSULOSIN HCL 0.4 MG CAP.SR.24H PO SCH ×2 (08:10→21:18)
[2020-08-08] MEDS: LORATADINE 10 MG TABLET PO SCH (08:10)
[2020-08-08] MEDS: TOPIRAMATE 100 MG TABLET PO SCH ×2 (08:10→21:22)
--- NOTE | 2020-08-08 20:56 | PDOC DISCHARGE SUMMARY ---
Impression - Admit/DC Date/PCP Admission Date/Primary Care Provider: 08/02/20 18:14 WU TYSON MD Discharge Date: 08/09/20 - Discharge Diagnosis (1) Acute deep vein thrombosis of right popliteal vein Is this a current diagnosis for this admission?: Yes (2) Chest pain Is this a current diagnosis for this admission?: Yes (3) Chronic kidney disease, stage 3 Is this a current diagnosis for this admission?: Yes - Additional Information Discharge Diet: As Tolerated Referrals: WU TYSON MD [Primary Care Provider] - Prescriptions: Apixaban [Eliquis 5 mg Tablet] 5 mg PO BID #60 tablet Home Medications: Carbamazepine [Tegretol Xr 200 mg Tab.sr] 600 mg PO BID 01/01/15 Montelukast Sodium 10 mg PO QPM 01/01/15 Primidone 100 mg PO BID 01/01/15 Topiramate 100 mg PO BID 01/01/15 Finasteride 5 mg PO QAM 01/29/15 Gabapentin 100 mg PO DAILY 11/15/18 Lacosamide [Vimpat] 150 mg PO BID 11/15/18 Losartan Potassium 100 mg PO DAILY 11/15/18 Tamsulosin HCl [Flomax] 0.4 mg PO BID 11/15/18 Azelastine HCl 2 spray NASL BID 08/02/20 Calcitriol [Rocaltrol 0.25 mcg Capsule] 1 cap PO DAILY 08/02/20 Ergocalciferol (Vitamin D2) [Drisdol 50,000 unit (1.25MG) Capsule] 50,000 unit PO Q7D 08/02/20 Loratadine [Claritin] 10 mg PO DAILY 08/02/20 Perampanel [Fycompa] 6 mg PO QHS 08/02/20 Apixaban [Eliquis 5 mg Tablet] 5 mg PO BID #60 tablet 08/08/20 History of Present Illiness History of Present Illness: CHANG SAAVEDRA is a 54 year old male, Patient is mentally challenged history of seizure, hypertension, BPH, he came to the office today with his sister for evaluation of swelling of the right lower extremity, deep vein thrombosis was suspected, a stat venous Doppler was obtained, demonstrated extensive DVT from the ankle to the popliteal fossa. He also complain of chest pain and shortness of breath suspicious for PE but CT angiogram could not be obtained because of CKD stage III. Hospital Course Hospital Course: Patient was admitted for the management of the deep vein thrombosis of the right leg, he was treated with IV heparin for 7 days this to be transitioned to p.o. Eliquis. Patient was admitted and manage inpatient because he has underlining chronic kidney disease, the loading dose of Eliquis is 10 mg p.o. twice daily for 7 days, the loading dose is not safe in the setting of CKD so patient was admitted and treated with IV heparin for 7 days which is the duration for the loading dose of Eliquis. He will be discharged home on maintenance dose of 5 mg p.o. twice daily for 6 months and then transition to 2.5 mg p.o. daily lifelong. He has unprovoked DVT meaning that he will be on lifelong anticoagulation. 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 Physical Exam Vital Signs: Temp Pulse Resp BP Pulse Ox 97.7 F 78 16 114/80 100 08/08/20 14:55 08/08/20 14:55 08/08/20 14:55 08/08/20 14:55 08/08/20 14:55 Intake & Output 08/07/20 08/08/20 08/09/20 06:59 06:59 06:59 Intake Total 1450 1411 700 Balance 1450 1411 700 Weight 84.8 kg 86.2 kg General appearance: PRESENT: no acute distress Eye exam: PRESENT: PERRLA Respiratory exam: PRESENT: clear to auscultation [place] Cardiovascular exam: PRESENT: +S1, +S2 GI/Abdominal exam: PRESENT: soft Neurological exam: PRESENT: alert, CN II-XII grossly intact Results Laboratory Results: WBC 3.9 10^3/uL (4.0-10.5) L 08/05/20 06:38 RBC 4.47 10^6/uL (4.35-5.55) 08/05/20 06:38 Hgb 13.2 g/dL (13.5-17.0) L 08/05/20 06:38 Hct 39.4 % (37.9-51.0) 08/05/20 06:38 MCV 88 fl (80-97) 08/05/20 06:38 MCH 29.4 pg (27.0-33.4) 08/05/20 06:38 MCHC 33.4 g/dL (32.0-36.0) 08/05/20 06:38 RDW 14.3 % (11.5-14.0) H 08/05/20 06:38 Plt Count 162 10^3/uL (150-450) 08/05/20 06:38 Lymph % (Auto) 42.3 % (13-45) 08/05/20 06:38 [place] % (Auto) 10.7 % (3-13) 08/05/20 06:38 Eos % (Auto) 8.0 % (0-6) H 08/05/20 06:38 Baso % (Auto) 0.5 % (0-2) 08/05/20 06:38 Absolute Neuts (auto) 1.5 10^3/uL (1.7-8.2) L 08/05/20 06:38 Absolute Lymphs (auto) 1.6 10^3/uL (0.5-4.7) 08/05/20 06:38 Absolute Monos (auto) 0.4 10^3/uL (0.1-1.4) 08/05/20 06:38 Absolute Eos (auto) 0.3 10^3/uL (0.0-0.6) 08/05/20 06:38 Absolute Basos (auto) 0.0 10^3/uL (0.0-0.2) 08/05/20 06:38 Seg Neutrophils % 38.5 % (42-78) L 08/05/20 06:38 PT 15.4 SEC (11.4-15.4) 08/02/20 20:30 INR 1.20 08/02/20 20:30 APTT 74.0 SEC (23.5-35.8) H 08/08/20 04:55 D-Dimer 5.38 ug/mL (0.00-0.50) H 08/02/20 20:30 Sodium 139.6 mmol/L (137-145) 08/05/20 06:38 Potassium 4.1 mmol/L (3.6-5.0) 08/05/20 06:38 Chloride 112 mmol/L (98-107) H 08/05/20 06:38 Carbon Dioxide 19 mmol/L (22-30) L 08/05/20 06:38 Anion Gap 9 (5-19) 08/05/20 06:38 BUN 18 mg/dL (7-20) 08/05/20 06:38 Creatinine 1.37 mg/dL (0.52-1.25) H 08/05/20 06:38 Est GFR ( Amer) > 60 (>60) 08/05/20 06:38 Est GFR (MDRD) Non-Af 54 (>60) L 08/05/20 06:38 Glucose 84 mg/dL (75-110) 08/05/20 06:38 Hemoglobin A1c % 5.1 % (4.7-6.0) 08/03/20 08:22 Calcium 9.3 mg/dL (8.4-10.2) 08/05/20 06:38 Phosphorus 2.7 mg/dL (2.5-4.5) 08/03/20 08:22 Magnesium 2.4 mg/dL (1.6-2.3) H 08/02/20 20:30 Total Bilirubin 0.4 mg/dL (0.2-1.3) 08/05/20 06:38 Direct Bilirubin 0.2 mg/dL (0.0-0.4) 08/05/20 06:38 Neonat Total Bilirubin Not Reportable 08/05/20 06:38 Neonat Direct Bilirubin Not Reportable 08/05/20 06:38 Neonat Indirect Bili Not Reportable 08/05/20 06:38 AST 28 U/L (17-59) 08/05/20 06:38 ALT 23 U/L (<50) 08/05/20 06:38 Alkaline Phosphatase 111 U/L (38-126) 08/05/20 06:38 Ammonia 23.8 umol/L (9-33) 08/02/20 20:30 Creatine Kinase 69 U/L (55-170) 08/03/20 08:22 CK-MB (CK-2) 0.28 ng/mL (<4.55) 08/03/20 08:22 Troponin I < 0.012 ng/mL 08/03/20 08:22 NT-Pro-B Natriuret Pep 84 pg/mL (<125) 08/02/20 20:30 Total Protein 6.8 g/dL (6.3-8.2) 08/05/20 06:38 Albumin 3.6 g/dL (3.5-5.0) 08/05/20 06:38 Triglycerides 39 mg/dL (<150) 08/03/20 08:22 Cholesterol 207.05 mg/dL (0-200) H 08/03/20 08:22 LDL Cholesterol Direct 86 mg/dL (<100) 08/03/20 08:22 VLDL Cholesterol 8.0 mg/dL (10-31) L 08/03/20 08:22 HDL Cholesterol 84 mg/dL (>40) 08/03/20 08:22 Amylase 253 U/L (30-110) H 08/02/20 20:30 Lipase 400.5 U/L (23-300) H 08/02/20 20:30 TSH 1.19 uIU/mL (0.47-4.68) 08/02/20 20:30 Free T4 0.63 ng/dL (0.78-2.19) L 08/02/20 20:30 Urine Color YELLOW 08/07/20 05:45 Urine Appearance SLIGHTLY-CLOUDY 08/07/20 05:45 Urine pH 6.0 (5.0-9.0) 08/07/20 05:45 Ur Specific [place] 1.013 08/07/20 05:45 Urine Protein NEGATIVE mg/dL (NEGATIVE) 08/07/20 05:45 Urine Glucose (UA) NEGATIVE mg/dL (NEGATIVE) 08/07/20 05:45 Urine Ketones NEGATIVE mg/dL (NEGATIVE) 08/07/20 05:45 Urine Blood NEGATIVE (NEGATIVE) 08/07/20 05:45 Urine Nitrite NEGATIVE (NEGATIVE) 08/07/20 05:45 Urine Bilirubin NEGATIVE (NEGATIVE) 08/07/20 05:45 Urine Urobilinogen NEGATIVE mg/dL (<2.0) 08/07/20 05:45 Ur Leukocyte Esterase SMALL (NEGATIVE) H 08/07/20 05:45 Urine WBC (Auto) 15 /HPF 08/07/20 05:45 Urine RBC (Auto) 0 /HPF 08/07/20 05:45 Urine Bacteria (Auto) TRACE /HPF 08/07/20 05:45 Squamous Epi Cells Auto 1 /HPF 08/07/20 05:45 Urine Mucus (Auto) RARE /LPF 08/07/20 05:45 Urine Ascorbic Acid NEGATIVE (NEGATIVE) 08/07/20 05:45 Urine Opiates Screen NEGATIVE 08/03/20 13:00 Urine Methadone Screen NEGATIVE 08/03/20 13:00 Ur Barbiturates Screen UNCONFIRMED POSITIVE 08/03/20 13:00 Ur Phencyclidine Scrn NEGATIVE 08/03/20 13:00 Ur Amphetamines Screen NEGATIVE 08/03/20 13:00 U Benzodiazepines Scrn NEGATIVE 08/03/20 13:00 Urine Cocaine Screen NEGATIVE 08/03/20 13:00 U Marijuana (THC) Screen NEGATIVE 08/03/20 13:00 08/02/20 08/02/20 08/03/20 20:30 20:30 02:00 CK-MB (CK-2) 0.22 < 0.22 Troponin I < 0.012 < 0.012 NT-Pro-B Natriuret Pep 84 08/03/20 08:22 CK-MB (CK-2) 0.28 Troponin I < 0.012 NT-Pro-B Natriuret Pep Impressions: Chest X-Ray 08/02/20 19:48 IMPRESSION: No obvious acute findings in the chest. Mildly dilated loops of bowel in the upper abdomen. Stroke Is this a Stroke Patient?: No Acute Heart Failure Is this a Heart Failure Patient?: No
[2020-08-08] MEDS: MONTELUKAST SODIUM 10 MG TABLET PO SCH (21:17)
[2020-08-08] MEDS: PERAMPANEL 6 MG PO SCH (21:22)
[2020-08-09] MEDS: HEPARIN SODIUM,PORCINE/D5W 25,000 UNIT/250 ML RTUINJ IV PRN (03:40)
[2020-08-09 05:36] LABS: ABSOLUTE EOSINOPHILS # (AUTO) 0.3 10^3/uL (0.0-0.6); ABSOLUTE LYMPHOCYTES (AUTO) 1.8 10^3/uL (0.5-4.7); ABSOLUTE MONOCYTES (AUTO) 0.4 10^3/uL (0.1-1.4); ABSOLUTE NEUT (AUTO) 1.5 10^3/uL (1.7-8.2); BASOPHILS % (AUTO) 0.7 % (0-2); EOSINOPHILS % (AUTO) 7.1 % (0-6); HEMATOCRIT 40.7 % (37.9-51.0); HEMOGLOBIN 13.5 g/dL (13.5-17.0); LYMPHOCYTES % (AUTO) 44.4 % (13-45); MEAN CORPUSCULAR HEMOGLOBIN 29.3 pg (27.0-33.4); MEAN CORPUSCULAR HGB CONC 33.2 g/dL (32.0-36.0); MEAN CORPUSCULAR VOLUME 88 fl (80-97); MONOCYTES % (AUTO) 10.9 % (3-13); PLATELET COUNT 179 10^3/uL (150-450); RED BLOOD COUNT 4.61 10^6/uL (4.35-5.55); RED CELL DISTRIBUTION WIDTH 14.5 % (11.5-14.0); SEGMENTED NEUTROPHILS % (AUTO) 36.9 % (42-78); TOTAL CELLS COUNTED % (AUTO) 100 %
[2020-08-09 05:48] LABS: ANION GAP 8 (5-19); BLOOD UREA NITROGEN 21 mg/dL (7-20); CALCIUM 9.4 mg/dL (8.4-10.2); CARBON DIOXIDE 19 mmol/L (22-30); CHLORIDE 111 mmol/L (98-107); GLUCOSE 85 mg/dL (75-110); POTASSIUM 4.4 mmol/L (3.6-5.0)
[2020-08-09 07:06] LABS: APPEARANCE,URINE CLEAR; BILIRUBIN,URINE NEGATIVE (NEGATIVE); COLOR,URINE YELLOW; GLUCOSE, URINE NEGATIVE (NEGATIVE); KETONES,URINE NEGATIVE (NEGATIVE); LEUKOCYTE ESTERASE,URINE NEGATIVE (NEGATIVE); NITRITE,URINE NEGATIVE (NEGATIVE); PROTEIN,URINE NEGATIVE (NEGATIVE); URINE SPECIFIC GRAVITY 1.009; UROBILINOGEN,URINE NEGATIVE mg/dL (<2.0)
[2020-08-09] MEDS: CARBAMAZEPINE 200 MG TAB.SR.12H PO SCH (08:14)
[2020-08-09] MEDS: FINASTERIDE 5 MG TABLET PO SCH (08:15)
[2020-08-09] MEDS: TAMSULOSIN HCL 0.4 MG CAP.SR.24H PO SCH (08:15)
[2020-08-09] MEDS: GABAPENTIN 100 MG CAPSULE PO SCH (08:15)
[2020-08-09] MEDS: LACOSAMIDE 100 MG TABLET PO SCH (08:16)
[2020-08-09] MEDS: LORATADINE 10 MG TABLET PO SCH (08:16)
[2020-08-09] MEDS: PRIMIDONE 50 MG TABLET PO SCH (08:16)
[2020-08-09] MEDS: CALCITRIOL 0.25 MCG CAPSULE PO SCH (08:16)
[2020-08-09] MEDS: TOPIRAMATE 100 MG TABLET PO SCH (08:17)
[2020-08-09] MEDS: AZELASTINE HCL NASL SCH (08:20)
[2020-08-09] MEDS: LOSARTAN POTASSIUM 50 MG TABLET PO SCH (08:20)
[2020-08-09 09:47] VITALS: BP 133/89
== END 2020-08-09 10:25 | disposition home or self-care (01) | DRG 301 ==
LOC: 3W 18:14
PROVIDERS: ADMIT Internal Medicine; ATTEND Internal Medicine
DX: I82.431 Acute embolism and thrombosis of right popliteal vein (principal); N18.30 Chronic kidney disease, stage 3 unspecified; I12.9 Hypertensive chronic kidney disease with stage 1 through stage 4 chronic kidney disease, or unspecified chronic kidney disease; N40.0 Benign prostatic hyperplasia without lower urinary tract symptoms; R07.9 Chest pain, unspecified; R06.02 Shortness of breath; D57.1 Sickle-cell disease without crisis; Z79.899 Other long term (current) drug therapy
CPT/HCPCS: 36415; 71046; 80048; 80053; 80061; 80307; 81001; 82140; 82150; 82550; 82553; 83036; 83690; 83735; 83880; 84100; 84439; 84443; 84484; 85025; 85379; 85610; 85730; 87040; 87086; 93971; J1644; J3490

== ENCOUNTER → 2020-08-02 | Outpatient (CLI) | payer MEDICARE, MEDICAID ==
--- NOTE | 2020-08-02 14:33 | RADIOLOGY REPORT (SQ) ---
EXAM DESCRIPTION: VENOUS UNILATERAL LOWER IMAGES COMPLETED DATE/TIME: 08/02/2020 2:07 pm REASON FOR STUDY: RLE SWELLING R22.42 LOCALIZED SWELLING, MASS AND LUMP, LEFT LOWER LIMB COMPARISON: None. TECHNIQUE: Dynamic and static hawkins scale and color images acquired of the right leg venous system. S elected spectral images acquired with additional compression and augmentation maneuvers. The contrala teral common femoral vein and saphenofemoral junction were also imaged. Images stored on PACS. LIMITATIONS: None. FINDINGS: COMMON FEMORAL: Normal phasicity, compression and augmentation. No visualized echogenic ma terial on hawkins scale. No defects on color images. FEMORAL: Normal compression and augmentation. No visualized echogenic material on hawkins scale. No defe cts on color images. POPLITEAL: Occlusive thrombus from the popliteal to the posterior tibial vein. CALF VESSELS: See above. GSV and SSV: Normal compression, augmentation. No visualized echogenic material on hawkins scale. No def ects on color images. ANY DEEP VENOUS INSUFFICIENCY: Not evaluated. ANY EVIDENCE OF POPLITEAL CYST: No. OTHER: No other significant finding. CONTRALATERAL COMMON FEMORAL VEIN AND SAPHENOFEMORAL JUNCTION: Normal phasicity, compression and augmentation. No visualized echogenic material on hawkins scale. No de fects on color images. IMPRESSION: Positive acute DVT popliteal vein. TECHNICAL DOCUMENTATION: JOB ID: [id number] [employer]- All Rights Reserved Reading location - IP/workstation name: [email or web address]
== END ==
LOC: SP 12:52
PROVIDERS: ATTEND Internal Medicine
DX: I82.432 Acute embolism and thrombosis of left popliteal vein (principal)
CPT/HCPCS: 93971